=== PATIENT | male | born 1990 | race Caucasian/White ===

== ENCOUNTER 2022-09-01 20:52 | Emergency (ER) | payer SELFPAY ==
[2022-09-01] MEDS ORDERED: AMOX500C2 PO (21:10)
[2022-09-01] MEDS ORDERED: IBUP-1780 PO (21:10)
[2022-09-01] MEDS ORDERED: LORazepam 0.5 MG (ATIVAN) TABLET PO STA (21:11)
[2022-09-01] MEDS ORDERED: AUGMENTIN 875 MG TAB (AMOXICILLIN/CLAVULANATE) PO STA (21:11)
--- NOTE | 2022-09-01 21:11 | ED EENT ---
History of Present Illness General Chief Complaint: Dental Problems/Pain Stated Complaint: HEADACHE Source: patient Exam Limitations: no limitations History of Present Illness Date Seen by Provider: Sep 01, 2022 Time Seen by Provider: 20:48 Initial Comments 31-year-old male with no pertinent past medical history coming in due to facial pain that started on the right side of his mouth, now radiating to the other side. Been going on for couple days, worsening today. He states he was cutting wood earlier today, a piece went to his mouth, he possibly bit down in maybe broke a tooth. He states he last used meth roughly 21 days ago. Denies any fever, facial swelling, voice changes, difficulty swallowing, or any other concerns. Allergies and Home Medications Allergies Coded Allergies: diphenhydramine (Verified Allergy, Unknown, 09/01/22) Patient Home Medication List Home Medication List Reviewed: Yes Review of Systems Review of Systems Constitutional: No fever Eyes: No Symptoms Reported Ears: No Symptoms Reported Nose: no symptoms reported Mouth: see HPI Throat: no symptoms reported Respiratory: no symptoms reported Cardiovascular: no symptoms reported Gastrointestinal: no symptoms reported Musculoskeletal: no symptoms reported Skin: no symptoms reported Neurological: No Symptoms Reported Hematologic/Lymphatic: No Symptoms Reported Immunological/Allergic: no symptoms reported All Other Systems Reviewed Negative Unless Noted: Yes Past [id number]-[id number] Hx Patient Social History Tobacco Use?: Yes Tobacco type used: Cigarettes Smoking Status: Current Everyday Smoker Use of E-Cig and/or Vaping dev: No Substance use?: Yes Substance type: Methamphetamine Alcohol Use?: No Pt feels they are or have been: No Past Medical History Surgeries: Yes Appendectomy Physical Exam Height, Weight, BMI Height: '" Weight: lbs. oz. kg; BMI Method: General Appearance: WD/WN, no apparent distress, other (Twitching, poor eye contact) Eyes: bilateral eye normal inspection Ears: bilateral ear auricle normal, bilateral ear canal normal, bilateral ear TM normal Nose: normal inspection Mouth/Throat: dental tenderness; No excessive drooling, No foreign body, No mandibular swelling, No maxillary swelling, No pharynx swelling, No pharynx tenderness, No tongue swollen, No tonsillar exudate, No tonsillar swelling, No trismus, No uvula swelling, No voice changes; other (No abscess or swelling seen) Neck: non-tender, full range of motion, supple, normal inspection Cardiovascular: regular rate, rhythm, no edema, no murmur Respiratory: chest non-tender, lungs clear, normal breath sounds, no respiratory distress, no accessory muscle use Gastrointestinal: normal bowel sounds, non tender, soft; No distended, No guarding, No rebound Neurologic/Psychiatric: no motor/sensory deficits, alert, normal mood/affect Skin: normal color, warm/dry Progress/Results/Core Measures Progress Progress Note : Progress Note 29-year-old male presenting for initially facial pain, but seems to be more dental pain. Numerous dental caries and fractured teeth. Does not have a dentist at this time. Does appear to at least be mildly under the influence of something, appearing similar to some type of stimulant. He has used meth in the past, and does appear consistent with this. We will give him the antibiotic and refer him to [facility] to get a dental referral. Departure Impression Primary Impression: Pain, dental Disposition: HOME, SELF-CARE Condition: Stable Departure-Patient Inst. Decision time for Depature: 21:08 Referrals: [facility] [place] Patient Instructions: Dental Pain Add. Discharge Instructions: Please call the number listed above with [facility] to start an appointment. They can help you follow-up with a dentist which you do need, otherwise there is potential for worsening infection. You will be on antibiotics for the next week as well as prescription strength anti- inflammatories. Scripts Ibuprofen (Ibuprofen) 800 Mg Tablet 800 MG PO Q8H PRN for PAIN for 7 Days, #21 TAB 0 Refills Prov: MARY MAHAN MD 09/01/22 Amoxicillin (Amoxicillin) 500 Mg Capsule 500 MG PO QID for 7 Days, #28 CAP 0 Refills Prov: MARY MAHAN MD 09/01/22 Work/School Note: Work Release Form Date Seen in the Emergency Department: Sep 01, 2022 Return to Work: Sep 03, 2022 Restrictions: No Restrictions MARY MAHAN MD Sep 01, 2022 21:11
[2022-09-01] MEDS ORDERED: KETOROLAC 15 MG/ML VIAL IM ONE (21:15)
[2022-09-01 21:36] VITALS: BP 159/100
== END 2022-09-01 21:36 | disposition home or self-care (01) ==
LOC: EDUNIT# 20:52 → ER FS 21:07
DX: S02.5XXA Fracture of tooth (traumatic), initial encounter for closed fracture (principal); K02.9 Dental caries, unspecified; F17.210 Nicotine dependence, cigarettes, uncomplicated; Z28.310 Unvaccinated for COVID-19; X58.XXXA Exposure to other specified factors, initial encounter
CPT/HCPCS: 99284